=== PATIENT | female | born 1990 | race Caucasian/White ===

== ENCOUNTER 2017-03-16 16:53 | Emergency (ER) | payer MEDICAID ==
[~2017-03-16] VITALS: Ht 177.8 cm; Wt 106.6 kg
[2017-03-16 17:00] VITALS: BP 139/84
--- NOTE | 2017-03-16 18:11 | NUR ---
PATIENT LEFT WITHOUT BEING SEEN BY DR. TYSON. NO FURTHER CARE PROVIDED FOR PATIENT.
== END 2017-03-16 18:11 | disposition left against medical advice (07) ==
LOC: MED 16:53
DX: N89.8 Other specified noninflammatory disorders of vagina (principal); Z53.21 Procedure and treatment not carried out due to patient leaving prior to being seen by health care provider